=== PATIENT | female | born 1940 | race Caucasian/White ===

== ENCOUNTER 2017-07-12 12:14 | Emergency (ER) | payer MEDICARE, BC ==
[2017-07-12] MEDS ORDERED: Ciprofloxacin 500 MG Tab PO ONE (13:38)
--- NOTE | 2017-07-12 13:44 | EDM.PDOC ---
ED HPI GENERAL MEDICAL PROBLEM - General Chief Complaint: ENT Problem Stated Complaint: SWOLLEN GLANDS, TROUBLE SWALLOWING Time Seen by Provider: 07/12/17 12:14 Source of Information: Reports: Patient History Limitations: Reports: No Limitations - History of Present Illness INITIAL COMMENTS - FREE TEXT/NARRATIVE: 77 y.o.w.f came with her son to the ed due to gen weakness, discomfort at her left ant neck, difficulty swallowing and stated she nearly passed out when she got up this am. Pt walked to the ed fine. No N/V/D or chest pain. Pt did not take her meds today as of yet. BP 143/83 pulse 102 temp 37.4 RR 17 Pulse ox 97% Onset Date: 07/11/17 Onset Time: 07:00 Duration: Day(s):, Intermittent Location: Reports: Neck Quality: Reports: Dull Severity: Mild Improves with: Reports: Rest Worsens with: Reports: Movement Context: Reports: Other (feeling "ill" gen weakness, passed nearly out) Associated Symptoms: Reports: Other (left ant neck discomfort) throat Pain Score (Numeric/FACES): 5 - Related Data Allergies Allergy/AdvReac Type Severity Reaction Status Date / Time No Known Allergies Allergy Verified 07/12/17 12:33 Home Meds: Home Meds Aspirin 81 mg PO DAILY 07/12/17 [History] Ciprofloxacin HCl [Cipro] 500 mg PO BID #20 tablet 07/12/17 [Rx] Losartan Potassium 25 mg PO DAILY 07/12/17 [History] Pravastatin [Pravachol] 1 tab PO DAILY 07/12/17 [History] cycloSPORINE [Restasis Multidose] 1 drop EYEBOTH DAILY 07/12/17 [History] Past Medical History HEENT History: Reports: Impaired Vision Cardiovascular History: Reports: Hypertension [employer] History: Reports: Social & Family History - Family History Family Medical History: Noncontributory - Tobacco Use Smoking Status *Q: Never Smoker Second Hand Smoke Exposure: No - Caffeine Use Caffeine Use: Reports: Coffee - Recreational Drug Use Recreational Drug Use: No ED ROS ENT - Review of Systems Review Of Systems: See Below Constitutional: Reports: No Symptoms HEENT: Reports: Throat Pain Respiratory: Reports: No Symptoms Cardiovascular: Reports: No Symptoms Endocrine: Reports: No Symptoms GI/Abdominal: Reports: No Symptoms : Reports: No Symptoms Musculoskeletal: Reports: No Symptoms Skin: Reports: No Symptoms Neurological: Reports: No Symptoms Psychiatric: Reports: No Symptoms Hematologic/Lymphatic: Reports: No Symptoms Immunologic: Reports: No Symptoms ED EXAM, ENT - Physical Exam Exam: See Below Exam Limited By: No Limitations General Appearance: Alert, WD/WN, Mild Distress Eye Exam: Bilateral Eye: Normal Inspection Ears: Normal External Exam, Other (pt is wear) Nose: Normal Inspection, Normal Mucousa, No Blood Mouth/Throat: Normal Inspection Head: Atraumatic, Normocephalic Neck: Normal Inspection, Lymphadenopathy (L) (anterior), Tender Lateral Respiratory/Chest: No Respiratory Distress, Lungs Clear Cardiovascular: Normal Peripheral Pulses GI/Abdominal: Normal Bowel Sounds, Soft, Non-Tender (Female) Exam: Deferred Rectal (Female) Exam: Deferred Back: Normal Inspection Extremities: Normal Inspection Neurological: Alert, Oriented, CN II-XII Intact, Normal Cognition, Normal Gait Psychiatric: Normal Affect, Normal Mood Skin: Warm, Dry, Intact, Normal Color, No Rash Lymphatic: No Adenopathy EKG INTERPRETATION EKG Date: 07/12/17 Time: 12:35 Rhythm: NSR Rate (Beats/Min): 98 [place]: Normal P-Wave: Present QRS: Normal ST-T: Normal QT: Normal Comparison: NA - No Prior EKG Course - Vital Signs Text/Narrative:: 77 y.o.w.f came with her son to the ed due to gen weakness, discomfort at her left ant neck, difficulty swallowing and stated she nearly passed out when she got up this am. Pt walked to the ed fine. No N/V/D or chest pain. Pt did not take her meds today as of yet. BP 143/83 pulse 102 temp 37.4 RR 17 Pulse ox 97% PE: WNWD W F in NAD with dysphagia and left ant neck LK swelling, minor, bilat otitis externa (hearing aids) Labs: WBC 13.6 Na 132 RST was neg Cx is pending Influenza test was neg. EKG: NSR, no acute ST/T wave changes Impression: Hyponatremia (minor), WBC elevated 13.6 (minor). LN swelling left ant neck, nasal congestion, Otitis externa (hearing aids Tx: Cipro Reexm: Improved. pt was taking the meds and fluids well on D/C Plan: D/C with instructions Last Recorded V/S: Last Vital Signs Temp 37.4 C 07/12/17 12:25 Pulse 102 H 07/12/17 12:25 Resp 18 07/12/17 12:25 BP 148/83 H 07/12/17 12:25 Pulse Ox 99 07/12/17 12:25 - Orders/Labs/Meds Orders: Active Orders 24 hr Category Date Time Status CULTURE STREP A CONFIRMATION [RM] Stat Lab 07/12/17 12:28 Results STREP SCRN A RAPID W CULT CONF [RM] Stat Lab 07/12/17 12:28 Results EKG 12 Lead [EK] Routine Ther 07/12/17 12:28 Ordered Labs: Laboratory Tests 07/12/17 07/12/17 07/12/17 Range/Units 12:44 13:00 13:00 WBC 13.6 H (4.5-12.0) X10-3/uL RBC 4.08 (3.23-5.20) x10(6)uL Hgb 12.4 (11.5-15.5) g/dL Hct 36.7 (30.0-51.3) % MCV 90.0 (80-96) fL MCH 30.4 (27.7-33.6) pg MCHC 33.8 (32.2-35.4) g/dL RDW 13.0 (11.5-15.5) % Plt Count 354 (125-369) X10(3)uL MPV 6.9 L (7.4-10.4) fL Add Manual Diff Yes Neutrophils % (Manual) 87 H (46-82) % Lymphocytes % (Manual) 8 L (13-37) % Monocytes % (Manual) 5 (4-12) % PT 10.3 (8.7-11.1) INR 1.02 (0.89-1.13) Sodium (135-145) mmol/L Potassium (3.5-5.3) mmol/L Chloride (100-110) mmol/L Carbon Dioxide (21-32) mmol/L BUN (7-18) mg/dL Creatinine (0.55-1.02) mg/dL Est Cr Clr Drug Dosing mL/min Estimated GFR (MDRD) (>60) BUN/Creatinine Ratio (9-20) Glucose (80-116) mg/dL Calcium (8.6-10.2) mg/dL Troponin I (<0.017-0.056) ng/mL Urine Color Yellow (YELLOW) Urine Appearance Slightly cloudy (CLEAR) Urine pH 8.0 H (5.0-6.5) Ur Specific [place] 1.015 (1.010-1.025) Urine Protein Negative (NEGATIVE) mg/dL Urine Glucose (UA) Normal (NEGATIVE) mg/dL Urine Ketones Negative (NEGATIVE) mg/dL Urine Occult Blood Negative (NEGATIVE) Urine Nitrite Negative (NEGATIVE) Urine Bilirubin Negative (NEGATIVE) Urine Urobilinogen Normal (NEGATIVE) mg/dL Ur Leukocyte Esterase Negative (NEGATIVE) Urine WBC 0-5 (0) Ur Squamous Epith Cells Few H (NS,R,O) Urine Bacteria Few H (NS) 07/12/17 07/12/17 Range/Units 13:00 13:00 WBC (4.5-12.0) X10-3/uL RBC (3.23-5.20) x10(6)uL Hgb (11.5-15.5) g/dL Hct (30.0-51.3) % MCV (80-96) fL MCH (27.7-33.6) pg MCHC (32.2-35.4) g/dL RDW (11.5-15.5) % Plt Count (125-369) X10(3)uL MPV (7.4-10.4) fL Add Manual Diff Neutrophils % (Manual) (46-82) % Lymphocytes % (Manual) (13-37) % Monocytes % (Manual) (4-12) % PT (8.7-11.1) INR (0.89-1.13) Sodium 132 L (135-145) mmol/L Potassium 4.7 (3.5-5.3) mmol/L Chloride 96 L (100-110) mmol/L Carbon Dioxide 27 (21-32) mmol/L BUN 10 (7-18) mg/dL Creatinine 0.9 (0.55-1.02) mg/dL Est Cr Clr Drug Dosing 37.00 mL/min Estimated GFR (MDRD) > 60 (>60) BUN/Creatinine Ratio 11.1 (9-20) Glucose 115 (80-116) mg/dL Calcium 9.5 (8.6-10.2) mg/dL Troponin I < 0.017 L (<0.017-0.056) ng/mL Urine Color (YELLOW) Urine Appearance (CLEAR) Urine pH (5.0-6.5) Ur Specific [place] (1.010-1.025) Urine Protein (NEGATIVE) mg/dL Urine Glucose (UA) (NEGATIVE) mg/dL Urine Ketones (NEGATIVE) mg/dL Urine Occult Blood (NEGATIVE) Urine Nitrite (NEGATIVE) Urine Bilirubin (NEGATIVE) Urine Urobilinogen (NEGATIVE) mg/dL Ur Leukocyte Esterase (NEGATIVE) Urine WBC (0) Ur Squamous Epith Cells (NS,R,O) Urine Bacteria (NS) Meds: Medications Discontinued Medications Generic Name Dose Route Start Last Admin Trade Name Freq PRN Reason Stop Dose Admin Ciprofloxacin 500 mg 07/12/17 13:38 07/12/17 13:53 Ciprofloxacin Hcl PO 07/12/17 13:39 500 mg ONETIME ONE Administration Departure - Departure Time of Disposition: 13:44 Disposition: Home, Self-Care 01 Condition: Good Clinical Impression: Pharyngitis, Nasal congestion - Discharge Information Prescriptions: Ciprofloxacin HCl [Cipro] 500 mg PO BID #20 tablet Instructions: Upper Respiratory Infection, Adult, Pharyngitis Referrals: Tao Giordano MD [Primary Care Provider] - Forms: ED Department Discharge Additional Instructions: Please take the Abx as recommended, increase water intake, your Influenza test result is pending. Please f/u, come back if your symptoms get worse acutely worse - My Orders Last 24 Hours: My Active Orders 07/12/17 12:28 CULTURE STREP A CONFIRMATION [RM] Stat STREP SCRN A RAPID W CULT CONF [RM] Stat EKG 12 Lead [EK] Routine - Assessment/Plan Last 24 Hours: My Active Orders 07/12/17 12:28 CULTURE STREP A CONFIRMATION [RM] Stat STREP SCRN A RAPID W CULT CONF [RM] Stat EKG 12 Lead [EK] Routine
== END 2017-07-12 14:00 | disposition home or self-care (01) ==
LOC: FB.ED 12:14
DX: J02.9 Acute pharyngitis, unspecified (principal); H60.93 Unspecified otitis externa, bilateral; R09.81 Nasal congestion; I10 Essential (primary) hypertension; Z79.82 Long term (current) use of aspirin; Z79.899 Other long term (current) drug therapy
CPT/HCPCS: 36415; 80048; 81001; 84484; 85025; 85610; 87081; 87430; 87804; 93005; 99283; A9270; 93010

== ENCOUNTER 2022-05-31 08:39 | Emergency (ER) | payer MEDICARE, BC ==
[2022-05-31] MEDS ORDERED: Sodium Chloride 0.9% 10 ML Syringe FLUSH PRN (08:50)
[2022-05-31 09:12] LABS: ESTIMATED GFR 50 mL/min (>60)
[2022-05-31] MEDS ORDERED: Sodium Chloride 0.9% 1,000 ML IV SCH (09:15)
[2022-05-31] MEDS ORDERED: Morphine 2 MG/ML SYRINGE IVPUSH ONE (09:23)
[2022-05-31] MEDS ORDERED: Iopamidol 755 Mg/ML 100 ML Bottle IV ONE (10:09)
== END 2022-05-31 11:49 | disposition home or self-care (01) ==
LOC: FB.ED 08:39
DX: K52.9 Noninfective gastroenteritis and colitis, unspecified (principal); E78.00 Pure hypercholesterolemia, unspecified; I10 Essential (primary) hypertension; Z88.8 Allergy status to other drugs, medicaments and biological substances; Z79.899 Other long term (current) drug therapy; Z90.49 Acquired absence of other specified parts of digestive tract
CPT/HCPCS: 36415; 74177; 80053; 81001; 82150; 83690; 85025; 96361; 96374; 99284; J2270; J7030; Q9967

== ENCOUNTER 2024-08-26 08:07 | Day surgery (SDC) | payer MEDICARE, BC ==
[2024-08-26] MEDS ORDERED: Propofol 200 MG/20 ML SDV IV ONE (08:08)
[2024-08-26] MEDS ORDERED: Lidocaine 2% 100 MG/5 ML Syringe IVPUSH ONE (08:08)
[2024-08-26] MEDS ORDERED: Lidocaine 2% Viscous Solution 15 ML UD PO ONE (08:08)
[2024-08-26] MEDS ORDERED: Sodium Chloride 0.9% 10 ML Syringe FLUSH PRN (08:15)
[2024-08-26] MEDS: Lactated Ringers 1,000 ML IV SCH (09:35)
[2024-08-26] MEDS: Simethicone Drops 40 MG/0.6 ML 30 ML Bottle ONE (09:40)
== END 2024-08-26 11:00 | disposition home or self-care (01) ==
LOC: FB.SDS 08:07
PROVIDERS: ATTEND Surgery
DX: K31.7 Polyp of stomach and duodenum (principal); K44.9 Diaphragmatic hernia without obstruction or gangrene; K21.9 Gastro-esophageal reflux disease without esophagitis; E78.5 Hyperlipidemia, unspecified; I10 Essential (primary) hypertension; Z79.899 Other long term (current) drug therapy; Z88.8 Allergy status to other drugs, medicaments and biological substances
CPT/HCPCS: 00731; 88305; 99100; A9270-GY; J2704; J7120